=== PATIENT | female | born 1975 | race African-American/Black ===

== ENCOUNTER 2017-06-17 23:22 | Emergency (ER) | payer SELFPAY ==
[~2017-06-17] VITALS: Ht 167.6 cm; Wt 82.0 kg
[2017-06-18 00:32] LABS: BASOPHILS % 0.7 % (0.0-2.0); HEMOGLOBIN. 10.7 g/dL (12.0-16.0); LYMPHOCYTES % 45.7 % (20.0-50.0); MEAN CORPUSCULAR HEMOGLOBIN 22.2 pg (28.0-32.0); MEAN CORPUSCULAR VOLUME 70.1 fL (81.0-99.0); MEAN PLATELET VOLUME 7.7 fl (7.4-10.4); MONOCYTES % 5.7 % (2.0-8.0); NEUTROPHILS % 44.9 % (40.0-76.0); PLATELET 390 x1000/uL (130-400); RED BLOOD CELL COUNT 4.85 mill/uL (4.2-5.4); RED CELL DISTRIBUTION WIDTH 19.1 % (11.6-14.6)
[2017-06-18 00:43] LABS: CHLORIDE 110 mEq/L (98-107)
[2017-06-18 00:44] LABS: PROTHROMBIN TIME 10.3 sec (9.4-11.6)
[2017-06-18 00:45] LABS: HCG SCREEN NEGATIVE
[2017-06-18] MEDS ORDERED: LORAZEPAM 2MG/ML CPJ IV ONE (00:45)
[2017-06-18 00:47] LABS: AMMONIA 21 uMol/L (<32); ETHANOL BLOOD 151 mg/dL
[2017-06-18 00:51] LABS: CREATINE KINASE 344 IU/L (26-192)
== END 2017-06-18 06:23 | disposition home or self-care (01) ==
LOC: ER 23:22
DX: F10.129 Alcohol abuse with intoxication, unspecified (principal); Y90.6 Blood alcohol level of 120-199 mg/100 ml; R45.5 Hostility
CPT/HCPCS: 36415; 80053; 82140; 82550; 83605; 83690; 83880; 84443; 84484; 84703; 85025; 85610; 99284; G0482